=== PATIENT | male | born 1955 | race Caucasian/White ===

== ENCOUNTER → 2020-05-09 | Outpatient (CLI) | payer MEDICARE, BC ==
[2020-05-09 13:13] LABS: Microalbumin, Urine Quant. 9.83 mg/L (0.000-20.000)
== END | disposition home or self-care (01) ==
LOC: LAB 07:00 → LAB SHORT 07:00 → LAB FUT 04-26 16:00
PROVIDERS: Internal Medicine
DX: I10 Essential (primary) hypertension (principal)
CPT/HCPCS: 81050; 82043

== ENCOUNTER 2020-08-30 06:39 | Day surgery (SDC) | payer MEDICARE, BC ==
[~2020-08-30] VITALS: Ht 177.8 cm; Wt 92.1 kg
[~2020-08-30 06:39] MED LIST: Amlodipine Besyl5 MG PO; Aspir 8181 MG PO; Crestor20 MG PO; Prinivil10 MG PO; VITAMIN D325 MC3 PO
--- NOTE | 2020-08-30 09:36 | NUR ---
08/30/20 0936 Zina Carr 0905 PT C/O BURINING IN BOTH OF HIS EYES. PT STATES RIGHT EYE SUBSIDED WITHIN A COUPLE MINUTES, RIGHT EYE IS BETTER HOWEVER RATES DISCOMFORT AT A 4. PT STATES THIS HAPPENS WHEN HE WAKES UP AND USUALLY VISINE DROPS HELP. PT STATES THEY ARE AT HOME AND WILL USE THEM WHEN HE GETS HOME.
== END 2020-08-30 09:31 | disposition home or self-care (01) ==
LOC: ORSCSDS 06:39
PROVIDERS: Internal Medicine Gastroenterology
PROC: 0DBL8ZX Excision of Transverse Colon, Via Natural or Artificial Opening Endoscopic, Diagnostic (ICD-10-PCS; principal; 2020-08-30 08:00)
PROC: 0DBN8ZX Excision of Sigmoid Colon, Via Natural or Artificial Opening Endoscopic, Diagnostic (ICD-10-PCS; principal; 2020-08-30 08:00)
PROC: 0DBH8ZX Excision of Cecum, Via Natural or Artificial Opening Endoscopic, Diagnostic (ICD-10-PCS; principal; 2020-08-30 08:00)
PROC: 0DBK8ZX Excision of Ascending Colon, Via Natural or Artificial Opening Endoscopic, Diagnostic (ICD-10-PCS; principal; 2020-08-30 08:00)
DX: Z12.11 Encounter for screening for malignant neoplasm of colon (principal); D12.3 Benign neoplasm of transverse colon; D12.2 Benign neoplasm of ascending colon; D12.0 Benign neoplasm of cecum; K63.5 Polyp of colon; K57.30 Diverticulosis of large intestine without perforation or abscess without bleeding; K64.4 Residual hemorrhoidal skin tags; I10 Essential (primary) hypertension; Z87.891 Personal history of nicotine dependence; Z79.899 Other long term (current) drug therapy; Z79.82 Long term (current) use of aspirin
CPT/HCPCS: 88305; J2405; J2704; J7120

== ENCOUNTER 2022-05-24 06:48 | Observation (INO) | payer MEDICARE, BC ==
[~2022-05-24] VITALS: Ht 182.9 cm; Wt 108.6 kg
[2022-05-24 07:54] LABS: BASOPHILS ABSOLUTE AUTO 0.06 K/mm3 (0.00-0.23); BASOPHILS PERCENT AUTO 1 % (0-2); EOSINOPHILS ABSOLUTE AUTO 0.23 K/mm3 (0.00-0.68); EOSINOPHILS PERCENT AUTO 3 % (0-6); Hematocrit 42.6 % (37.0-53.0); Hemoglobin 13.7 g/dL (13.5-17.5); IMMATURE GRAN ABSOLUTE AUTO 0.02 K/mm3 (0.00-0.10); IMMATURE GRAN PERCENT AUTO 0 % (0-1); LYMPHOCYTES ABSOLUTE AUTO 1.46 K/mm3 (0.84-5.20); LYMPHOCYTES PERCENT AUTO 18 % (21-46); MONOCYTES PERCENT AUTO 7 % (4-13); Mean Corpuscular HGB 29.3 pg (26.0-34.0); Mean Corpuscular HGB Conc 32.2 g/dL (31.5-36.5); Mean Corpuscular Volume 91 fL (80-100); Mean Platelet Volume 10.5 fL (9.1-12.4); NEUTROPHILS ABSOLUTE AUTO 5.75 K/mm3 (1.96-9.15); NEUTROPHILS PERCENT AUTO 71 % (41-73); Platelet Count 225 K/mm3 (150-400); RDW Standard Deviation 43.2 fL (35.1-46.3); Red Blood Cell Count 4.67 M/mm3 (4.30-5.90); White Blood Cell Count 8.12 K/mm3 (4.00-11.30)
[2022-05-24 08:16] LABS: Albumin, Blood 3.2 g/dL (3.4-5.0); Albumin/Globulin Ratio 0.9 (0.8-1.8); Bilirubin, Total 0.4 mg/dL (0.1-1.0); Bun/Creatinine Ratio 26.1 (12.0-20.0); Calcium, Blood 8.5 mg/dL (8.5-10.1); Creatinine, Blood 0.77 mg/dL (0.60-1.20); Globulin, Blood 3.6 g/dL (2.2-4.0); Potassium, Blood 4.2 mmol/L (3.5-5.5); Total Protein, Blood 6.8 g/dL (6.4-8.2)
[2022-05-24 09:48] LABS: Source, Urine Clean Catch
[2022-05-24 10:16] LABS: Appearance, Urine Clear (Clear); Bilirubin, Urine Neg (Neg); Blood, Urine Neg (Neg); Color, Urine Yellow (P-Yellow); Glucose Qualitative, Urine Neg (Neg); Ketones, Urine Neg (Neg); Leukocyte Esterase, Urine Neg (Neg); Nitrite, Urine Neg (Neg); Protein, Urine Neg (Neg); Urobilinogen, Urine NORM (Normal)
[2022-05-24 10:21] LABS: Anti-Xa UFH, PHA Monitoring <0.10 IU/mL; International Normalized Ratio 1.03; Prothrombin Time Results 10.8 Sec (9.7-11.5)
[2022-05-24 10:39] LABS: Influenza A, PCR NEGATIVE (NEGATIVE); Influenza B, PCR NEGATIVE (NEGATIVE); Resp Syncytial Virus, PCR NEGATIVE (NEGATIVE); SARS-Cov-2 (COVID-19) PCR, MMC NEGATIVE (NEGATIVE)
[2022-05-24] MEDS ORDERED: MELATONIN 5 MG1 EACH PO (11:27)
[2022-05-24] MEDS ORDERED: IBU800 MG PO (11:29)
[2022-05-24] MEDS ORDERED: ZESTRIL40 M1 PO (11:30)
[2022-05-24] MEDS ORDERED: Crestor20 MG PO (11:31)
[2022-05-24] MEDS ORDERED: Vitamin D PO (11:32)
[2022-05-24 13:01] LABS: Cholesterol 110 mg/dL (50-200); HDL Cholesterol 54 mg/dL (>39); LDL/HDL RATIO 0.9; Low Density Lipoprotein Chol 49 mg/dL (0-110); Triglycerides 35 mg/dL (30-160); Very Low Density Lipoprot Chol 7 mg/dL (6-32)
--- NOTE | 2022-05-24 14:12 | NUR ---
PT ARRIVED TO THE MEDICAL FLOOR VIA GURNEY FROM THE ER PT IS A/OX4, PLEASANT AND COOPERATIVE. PT GOT UP FROM THE GURNEY AND AMBULATED TO THE BATHROOM WITH MINIMAL ASSITANCE. PT WAS ORIENTED TO THE ROOM LAYOTU AND CALL SYSTEM, CALL LIGHT IN REACH
--- NOTE | 2022-05-24 17:08 | NUR ---
PT IS A/OX4, PLEASANT AND COOPERATIVE. THE PT DENIES ANY CHEST PAIN OR ANY OTHER PAIN AT THIS TIME. THE PT IS UP IND IN HIS ROOM. IS AT THE BEDSIDE. CALL LIGHT IN REACH. WILL CONTINUE TO MONITOR AND ASSESS FOR CHANGES
[2022-05-25 00:26] LABS: BASOPHILS ABSOLUTE AUTO 0.09 K/mm3 (0.00-0.23); BASOPHILS PERCENT AUTO 1 % (0-2); EOSINOPHILS ABSOLUTE AUTO 0.21 K/mm3 (0.00-0.68); EOSINOPHILS PERCENT AUTO 2 % (0-6); Hematocrit 41.3 % (37.0-53.0); Hemoglobin 13.4 g/dL (13.5-17.5); IMMATURE GRAN ABSOLUTE AUTO 0.02 K/mm3 (0.00-0.10); IMMATURE GRAN PERCENT AUTO 0 % (0-1); LYMPHOCYTES ABSOLUTE AUTO 2.36 K/mm3 (0.84-5.20); LYMPHOCYTES PERCENT AUTO 26 % (21-46); MONOCYTES ABSOLUTE AUTO 0.66 K/mm3 (0.16-1.47); MONOCYTES PERCENT AUTO 7 % (4-13); Mean Corpuscular HGB 29.5 pg (26.0-34.0); Mean Corpuscular HGB Conc 32.4 g/dL (31.5-36.5); Mean Corpuscular Volume 91 fL (80-100); Mean Platelet Volume 10.5 fL (9.1-12.4); NEUTROPHILS ABSOLUTE AUTO 5.85 K/mm3 (1.96-9.15); NEUTROPHILS PERCENT AUTO 64 % (41-73); Platelet Count 230 K/mm3 (150-400); RDW Coefficient Variation 13.1 % (11.7-14.2); RDW Standard Deviation 43.4 fL (35.1-46.3); Red Blood Cell Count 4.55 M/mm3 (4.30-5.90); White Blood Cell Count 9.19 K/mm3 (4.00-11.30)
[2022-05-25 00:46] LABS: Albumin, Blood 2.9 g/dL (3.4-5.0); Albumin/Globulin Ratio 0.9 (0.8-1.8); Bilirubin, Total 0.4 mg/dL (0.1-1.0); Calcium, Blood 8.3 mg/dL (8.5-10.1); Creatinine, Blood 0.85 mg/dL (0.60-1.20); Globulin, Blood 3.3 g/dL (2.2-4.0); Potassium, Blood 3.9 mmol/L (3.5-5.5); Total Protein, Blood 6.2 g/dL (6.4-8.2)
--- NOTE | 2022-05-25 06:11 | NUR ---
SHIFT SUMMARY AOX4. VSS. TELE NSR @65. DENIES CP OR PRESSURE T/O NIGHT. DENIES NAUSEA. REPORTS AT HOME IT HARD/TIGHT TO TAKE DEEP BREATHS IN BUT STATES THAT HASNT OCCURED SINCE TAKING NITRO IN ER YESTERDAY. SPO2 >90% ON RA. LS DIM c CRACKLES IN RLL. HEP DRIP RUNNING 23.4ML/HR. IND IN RM. CALL LIGHT IN REACH & PT ABLE TO MAKE NEEDS KNOWN. WILL MONITOR.
[2022-05-25] MEDS ORDERED: METF500 PO (10:52)
[2022-05-25] MEDS ORDERED: METO25ER PO (10:52)
[2022-05-25] MEDS ORDERED: AMOCLA875 PO (10:52)
--- NOTE | 2022-05-25 11:37 | NUR ---
DISCHARGE SUMMARY PATIENT DISCHARGED HOME. DISCHARGE PAPERWORK REVIEWED WITH PATIENT AND QUESTIONS ASWERED. PRESCRIPTIONS FAXED TO PREFERRED PHARMACY. IVS AND TELE D/C'D. ALL PERSONAL BELONGINGS TAKEN WITH PATIENT AND TAKEN HOME BY .
== END 2022-05-25 11:40 | disposition home or self-care (01) ==
LOC: ER 06:48 → MEDS 06:49
PROVIDERS: Emergency Medicine; ADMIT Family Medicine
DX: I24.9 Acute ischemic heart disease, unspecified (principal); I10 Essential (primary) hypertension; E78.5 Hyperlipidemia, unspecified; F17.220 Nicotine dependence, chewing tobacco, uncomplicated; I21.4 Non-ST elevation (NSTEMI) myocardial infarction; I44.7 Left bundle-branch block, unspecified; E11.9 Type 2 diabetes mellitus without complications; E66.9 Obesity, unspecified; Z88.2 Allergy status to sulfonamides; Z88.5 Allergy status to narcotic agent; Z20.822 Contact with and (suspected) exposure to COVID-19; Z66 Do not resuscitate
CPT/HCPCS: 0241U; 36415; 71045; 80053; 80061; 81003; 83036; 83880; 84484; 85025; 85520; 85610; 85730; 93005; 93010; 93306; A9270; J1644

== ENCOUNTER 2023-02-12 11:42 | Day surgery (SDC) | payer MEDICARE, BC ==
[~2023-02-12] VITALS: Ht 177.8 cm; Wt 87.6 kg
[~2023-02-12 11:42] MED LIST changes: +AMOCLA875 PO; +ASPI81CH PO; +IBU800 MG PO; +MELATONIN 5 MG1 EACH PO; +METF500 PO; +METO25ER PO; +Percocet 5-3251 EACH PO; +TRAZ50 PO; +Vitamin D PO; +ZESTRIL40 M1 PO
[2023-02-12 15:27] VITALS: BP 109/68
--- NOTE | 2023-02-12 15:30 | NUR ---
02/12/23 1530 Wendy Ramirez LATE ENTRY 1525 IV REMOVED INTACT, WNL
== END 2023-02-12 15:30 | disposition home or self-care (01) ==
LOC: ORSCSDS 11:42
PROVIDERS: Internal Medicine Gastroenterology
PROC: 0DBN8ZX Excision of Sigmoid Colon, Via Natural or Artificial Opening Endoscopic, Diagnostic (ICD-10-PCS; principal; 2023-02-12 13:15)
DX: Z12.11 Encounter for screening for malignant neoplasm of colon (principal); Z86.010 Personal history of colon polyps; K63.5 Polyp of colon; K57.30 Diverticulosis of large intestine without perforation or abscess without bleeding; K64.4 Residual hemorrhoidal skin tags; I10 Essential (primary) hypertension; E11.9 Type 2 diabetes mellitus without complications; Z87.891 Personal history of nicotine dependence; Z79.899 Other long term (current) drug therapy
CPT/HCPCS: 88305; J2704; J7120

== ENCOUNTER → 2024-12-10 | Outpatient (CLI) | payer MEDICARE, BC ==
[2024-12-10 19:52] LABS: Microalb/Creat Ratio UR, Rand Unable to Calculate mg/g (0.000-30.000); Microalbumin, Random Urine <5.000 mg/L (0.000-20.000)
== END ==
LOC: LAB 10:50 → LAB SHORT 10:50
PROVIDERS: Family Medicine
DX: E11.21 Type 2 diabetes mellitus with diabetic nephropathy (principal); E11.69 Type 2 diabetes mellitus with other specified complication; E11.51 Type 2 diabetes mellitus with diabetic peripheral angiopathy without gangrene; E11.65 Type 2 diabetes mellitus with hyperglycemia
CPT/HCPCS: 82043; 82570